=== PATIENT | female | born 1965 | race Caucasian/White ===

== ENCOUNTER 2018-08-02 15:53 | Emergency (ER) | payer MEDICAID ==
[~2018-08-02] VITALS: Ht 154.9 cm; Wt 94.0 kg
[2018-08-02 16:06] VITALS: BP 192/118
[2018-08-02] MEDS ORDERED: ONDANSETRON HCL 4MG/2ML INJ IV STA (17:34)
[2018-08-02] MEDS ORDERED: SODIUM CHLORIDE 0.9% 1,000 ML IV ONE (17:34)
[2018-08-02 18:53] LABS: HEMATOCRIT. 42.1 % (36.0-48.0); HEMOGLOBIN. 14.3 g/dL (12.0-16.0); MEAN CORPUSCULAR HEMOGLOBIN 31.9 pg (28.0-32.0); MEAN CORPUSCULAR VOLUME 94.2 fL (81.0-99.0); MEAN PLATELET VOLUME 8.8 fl (7.4-10.4); PLATELET 350 x1000/uL (130-400); RED BLOOD CELL COUNT 4.47 mill/uL (4.2-5.4); RED CELL DISTRIBUTION WIDTH 13.2 % (11.6-14.6)
[2018-08-02 18:58] LABS: PROTHROMBIN TIME 9.8 sec (9.1-11.1)
[2018-08-02 18:59] LABS: CHLORIDE 103 mEq/L (98-107)
[2018-08-02 19:14] LABS: PLATELET ESTIMATE NORMAL
== END 2018-08-02 20:15 | disposition left against medical advice (07) ==
LOC: ER 20:06
DX: R10.9 Unspecified abdominal pain (principal); Z53.21 Procedure and treatment not carried out due to patient leaving prior to being seen by health care provider
CPT/HCPCS: 36415; 80053; 83690; 85025; 85610; J7030; 99284

== ENCOUNTER 2018-12-12 10:32 | Inpatient (IN) | payer MEDICAID, OTHER, SELFPAY ==
[~2018-12-12] VITALS: Ht 160 cm; Wt 95.7 kg
[2018-12-12] MEDS ORDERED: SODIUM CHLORIDE 0.9% 1,000 ML IV ONE (11:37)
[2018-12-12] MEDS ORDERED: ONDANSETRON HCL 4MG/2ML INJ IV STA (11:37)
[2018-12-12] MEDS ORDERED: PANTOPRAZOLE SODIUM 40 MG/VIAL IV ONE (11:45)
[2018-12-12] MEDS ORDERED: PANTOPRAZOLE 80 MG in SODIUM CHLORIDE 0.9% 100 ML IV SCH ×2 (11:45→12:00)
[2018-12-12] MEDS ORDERED: MORPHINE SULFATE 4 MG/ML CPJ (NOT FOR IM USE) IV ONE ×2 (12:15→17:30)
[2018-12-12 12:36] LABS: BASOPHILS % 0.6 % (0.0-2.0); EOSINOPHILS % 1.5 % (0.0-5.0); HEMATOCRIT. 43.8 % (36.0-48.0); LYMPHOCYTES % 19.5 % (20.0-50.0); MEAN CORPUSCULAR HEMOGLOBIN 32.3 pg (28.0-32.0); MEAN CORPUSCULAR VOLUME 94.6 fL (81.0-99.0); MEAN PLATELET VOLUME 8.3 fl (7.4-10.4); MONOCYTES % 6.6 % (2.0-8.0); NEUTROPHILS % 71.8 % (40.0-76.0); PLATELET 415 x1000/uL (130-400); RED BLOOD CELL COUNT 4.63 mill/uL (4.2-5.4); RED CELL DISTRIBUTION WIDTH 13.2 % (11.6-14.6)
[2018-12-12 12:42] LABS: CHLORIDE 105 mEq/L (98-107)
[2018-12-12 12:46] LABS: ETHANOL BLOOD < 10 mg/dL
[2018-12-12 12:51] LABS: CREATINE KINASE 102 IU/L (26-192); PARTIAL THROMBOPLASTIN TIME 28.3 sec (23.4-31.0)
[2018-12-12 12:54] LABS: CREATINE KINASE MB FRACTION 1.1 ng/mL (0.5-3.6)
[2018-12-12] MEDS ORDERED: CLONIDINE 0.1MG TABLET PO PRN (14:15)
[2018-12-12] MEDS ORDERED: ONDANSETRON HCL 4MG/2ML INJ IV PRN (14:15)
[2018-12-12] MEDS ORDERED: PANTOPRAZOLE SODIUM 40 MG/VIAL IV SCH ×2 (14:15→22:00)
[2018-12-12] MEDS: DEXT 5%/0.45% NACL 1000ML 1,000 ML IV SCH (14:57)
[2018-12-12] MEDS ORDERED: ONDANSETRON HCL 4MG/2ML INJ IV ONE (17:30)
[2018-12-12] MEDS: KETOROLAC 15MG/ML VIAL IV PRN (20:41)
[2018-12-12 21:25] VITALS: BP 117/75
[2018-12-12 21:45] VITALS: BP 117/75
[2018-12-12] MEDS: SUCRALFATE 1 G/10 ML UDC PO SCH (22:59)
[2018-12-13] VITALS: BP 121/67
[2018-12-13] MEDS ORDERED: LISI-604 PO (02:06)
[2018-12-13] MEDS ORDERED: OMEP20CA10 PO (02:12)
[2018-12-13] MEDS ORDERED: ASPI-1159 PO (02:15)
[2018-12-13] MEDS ORDERED: RANI15SY PO (02:15)
[2018-12-13] MEDS: DEXT 5%/0.45% NACL 1000ML 1,000 ML IV SCH (03:59)
[2018-12-13 04:00] VITALS: BP 110/63
[2018-12-13] MEDS: SUCRALFATE 1 G/10 ML UDC PO SCH ×2 (06:37→12:07)
[2018-12-13 07:28] LABS: BASOPHILS % 0.8 % (0.0-2.0); EOSINOPHILS % 7.3 % (0.0-5.0); HEMATOCRIT. 38.9 % (36.0-48.0); HEMOGLOBIN. 13.2 g/dL (12.0-16.0); LYMPHOCYTES % 25.2 % (20.0-50.0); MEAN CORPUSCULAR HEMOGLOBIN 32.2 pg (28.0-32.0); MEAN CORPUSCULAR VOLUME 94.9 fL (81.0-99.0); MEAN PLATELET VOLUME 8.7 fl (7.4-10.4); MONOCYTES % 10.4 % (2.0-8.0); NEUTROPHILS % 56.3 % (40.0-76.0); PLATELET 315 x1000/uL (130-400); RED CELL DISTRIBUTION WIDTH 13.2 % (11.6-14.6)
[2018-12-13 08:00] VITALS: BP 115/75
[2018-12-13] MEDS: KETOROLAC 15MG/ML VIAL IV PRN (09:59)
[2018-12-13 11:05] LABS: CHLORIDE 106 mEq/L (98-107)
[2018-12-13 12:00] VITALS: BP 142/67
[2018-12-13 13:23] VITALS: BP 142/67
== END 2018-12-13 14:02 | disposition home or self-care (01) | DRG 241 ==
LOC: ER 10:32 → 5WST 13:37 → EDBEDREQTM 13:38 → EDBEDREQ 13:38 → EDBEDREQSVC 13:38 → SUPCPDRO 14:10 → ENRESERV 20:03
PROVIDERS: ADMIT Hospitalist; ATTEND Hospitalist
DX: K25.4 Chronic or unspecified gastric ulcer with hemorrhage (principal); I10 Essential (primary) hypertension; Z87.11 Personal history of peptic ulcer disease
CPT/HCPCS: 36415; 71045; 74176; 82550; 82553; 83735; 83880; 84484; 86850; 86900; 93005; 96365; 96375; 99291; C9113; G0482; J1885; J2270; J2405; J7030; J7050